=== PATIENT | male | born 1995 | race Caucasian/White ===

== ENCOUNTER 2023-02-14 12:55 | Emergency (ER) | payer OTHER, SELFPAY ==
[2023-02-14 13:25] VITALS: BP 163/84; PULSE 66; RESP 18; TEMP 36.8; O2SAT 96; BMI 41.9
[2023-02-14 13:47] LABS: Appearance Urine Cloudy (Clear); Bilirubin Urine 1+ (Negative); Blood Urine 3+ (Negative); Color Urine Brown (Yellow); Glucose Urine Negative (Negative); Ketones Urine Negative (Negative); Leukocyte Esterase Urine Negative (Negative); Nitrite Urine Negative (Negative); Protein Urine 2+ (Negative); Specific Gravity Urine >= 1.030 (1.000-1.030); Urobilinogen Urine 0.2 (0.2-1.0); pH Urine 5.5 (5.0-8.5)
[2023-02-14 14:17] LABS: Bacteria Urine Few; Mucus Urine Few; RBC Urine >100 (0-2); Squamous Epithelial Cell Urine Few (None-Few)
[2023-02-14] MEDS: ONDANSETRON 2 MG/ML inj 4 MG IVP (15:01)
[2023-02-14] MEDS: 0.9 % SODIUM CHLORIDE 1000 ml 1,000 ML IV (15:01)
[2023-02-14] MEDS: KETOROLAC 15 MG/ML inj IVP (15:01)
--- NOTE | 2023-02-14 15:18 | ED_ITS ---
HPI - General Adult General Date Seen: 02/14/23 Chief complaint: Flank Pain Stated complaint: Kidney Stone Time Seen by Provider: 02/14/23 14:48 Source: patient Mode of arrival: ambulatory Limitations: no limitations History of Present Illness HPI narrative: Patient is a 27-year-old male who presents for evaluation of right-sided flank pain which started 2 hours prior to arrival. He has a history of for 5 kidney stones prior and this feels the same. It is associated with nausea no vomiting. He has not had fevers or chills. He has not noted hematuria. Prior kidney stones of all past without needing intervention. He says he had a CT scan with his original kidney stone but does not believe he has had CT scans since then. General health is otherwise good. Related Data Allergies Allergy/AdvReac Type Severity Reaction Status Date / Time No Known Drug Allergies Allergy Verified 02/14/23 13:28 Review of Systems Status of ROS: Reports: 10 or more systems reviewed and unremarkable except as noted in History and below Exam Narrative: Exam Narrative: Vital signs as noted above. In general, an alert, well-appearing patient. Head: Normocephalic, atraumatic. Eyes: Pupils are equal reactive. Extraocular movements are full. Conjunctivae are normal. ENT: Mucous membranes are moist. Throat is normal. Neck: Supple without lymphadenopathy. Heart: Regular rate and rhythm. No murmur or rub. Lungs: Clear bilaterally. No increased work of breathing, crackles or wheezes. No CVA tenderness. Abdomen: Soft and nontender. No organomegaly. Extremities: Well perfused. No edema. No calf tenderness. Pulses intact. Neurologic: Patient is alert and oriented to person and place. Speech is fluent. Face is symmetric. Moves all extremities equally. Affect: Normal. Skin: Warm and dry. Well perfused. Const: Vital Signs, click to edit/add: Vital Signs - 24 hr 02/14/23 13:25 Temperature 98.3 F Pulse Rate [Pulse Oximeter] 66 Respiratory Rate 18 Blood Pressure [Ri ght Upper Arm] 163/84 H Pulse Oximetry 96 Oxygen Delivery Me thod Room Air Documenting provider has reviewed patient's vital signs: yes Course Course Hospital Course: On arrival, urinalysis was obtained and is notable for 3+ blood, greater than 100 red cells, 2-5 white cells. An IV was established and he was given Toradol as well as Zofran with improvement in his symptoms. He was given a L of normal saline as well. I did look with the ultrasound, he has hydronephrosis on the right. Left is normal. No free fluid. I have reviewed previous records. He had a CT scan back in 2014 at which time he had a 3-4 mm calculus. I do not see other CT scans since then. He did not have significant other stone burden at that time. Given that his symptoms are suggestive of kidney stone, he has hematuria and hydronephrosis, I do not think he needs a CT scan today, though I have discussed with him that at times a stone can be too large to pass without intervention. At this time, I think pain control, hydration and observation is reasonable, if he does not pass the stone in the next several days then I would have him follow-up with Urology and ad ditional imaging may be needed. There is no evidence of infection on the urinalysis today, and he does not show any signs here of infection such as fever or chills or vomiting. If these were to develop he should return for re- evaluation right away. Likewise, if he has severe uncontrolled pain, return to the ER. Patient did require some morphine for pain control, and felt that this was more painful than his previous stones, so he did request that we do a CT scan today just to make sure this was not a larger stone. By my review, the CT shows some hydronephrosis on the right and an approximately 3 mm stone in the right ureter. Awaiting radiology review. Radiology reads the CT as showing a 2 mm stone, little bit of hydro, no other findings. He does have some other stones in the right kidney. Will discharge home with above plan. At this size, would assume this stone will pass without difficulty. Vital Signs Vital signs: Initial Vital Signs Temperature 98.3 F 02/14/23 13:25 Temperature Source Temporal Artery Scan 02/14/23 13:25 Pulse Rate 66 02/14/23 13:25 Pulse Rhythm 02/14/23 13:25 Pulse Strength 3+ Normal 02/14/23 13:25 Respiratory Rate 18 02/14/23 13:25 Blood Pressure 163/84 H 02/14/23 13:25 Blood Pressure Mean 110 02/14/23 13:25 Blood Pressure Position Sitting 02/14/23 13:25 Pulse Oximetry 96 03/18/23 13:25 Oxygen Delivery Method 02/14/23 13:25 Vital Signs Temperature 98.3 F 02/14/23 13:25 Pulse Rate 66 02/14/23 13:25 Respiratory Rate 18 02/14/23 13:25 Blood Pressure 163/84 H 02/14/23 13:25 Pulse Oximetry 96 02/14/23 13:25 Oxygen Delivery Method 02/14/23 13:25 Temperature 98.3 F 02/14/23 13:25 Pulse Rate 66 02/14/23 13:25 Respiratory Rate 18 02/14/23 13:25 Blood Pressure 163/84 H 02/14/23 13:25 Pulse Oximetry 96 02/14/23 13:25 Oxygen Delivery Method 02/14/23 13:25 Medical Decision Making Lab Data Labs: Lab Results 02/14/23 Range/Units 13:35 Urine Color Brown A (Yellow) Urine Appearance Cloudy A (Clear) Urine pH 5.5 (5.0-8.5) Ur Specific [place] >= 1.030 (1.000-1.030) Urine Protein 2+ A (Negative) Urine Glucose (UA) Negative (Negative) Urine Ketones Negative (Negative) Urine Blood 3+ A (Negative) Urine Nitrite Negative (Negative) Urine Bilirubin 1+ A (Negative) Urine Urobilinogen 0.2 (0.2-1.0) Ur Leukocyte Esterase Negative (Negative) Urine RBC >100 A (0-2) Urine WBC 2-5 (0-5) Ur Squamous Epith Cells Few (None-Few) Urine Bacteria Few A (None) Urine Mucus Few A (None) Discharge Plan Discharge Clinical Impression: Kidney stone Patient Disposition: Home, Self-Care Condition: Improved Instructions: Kidney Stones (ED) Additional Instructions: Ibuprofen 400 mg 3 times daily with food. Oxycodone as needed for uncontrolled pain. Zofran as needed for nausea. Push fluids, strain urine. If you have not passed a stone within the next 3-4 days, call to make urology follow-up. [phone] If at any time you develop severe uncontrolled pain, fevers, chills, vomiting or other new symptoms, return to the emergency department for re-evaluation. Stand Alone Forms: [facility] Info Instructions
[2023-02-14] MEDS: MORPHINE 4 MG/ML INJ IVP ×2 (15:59→17:34)
--- NOTE | 2023-02-14 17:13 | CRLHL7_ITS ---
For Patients: As a result of the Century Cures Act, medical imaging exams and procedure reports are released immediately into your electronic medical record. You may view this report before your referring provider. If you have questions, please contact your health care provider. INDICATION: Right flank pain. TECHNIQUE: CT abdomen and pelvis without contrast. COMPARISON: None. FINDINGS: Lower chest: Unremarkable. Liver: Normal in size and attenuation. No suspicious masses. Gallbladder and bile ducts: No stones or inflammation. No biliary dilatation. Pancreas: Unremarkable. No mass or inflammation. Spleen: Normal in size. No masses. Adrenal glands: Normal in size. No nodules. Kidneys: A 2 mm stone in the proximal right ureter is causing minimal hydronephrosis. Few other tiny stones remain in each kidney. GI tract: Unremarkable. Normal in caliber. No sign of mass or inflammation. Normal appendix. Vasculature: Abdominal aorta is normal in caliber. Lymph nodes: No lymphadenopathy. Peritoneum/Abdominal Wall: Unremarkable. No sign of mass or infiltration. No free air or significant free fluid. Pelvis: Unremarkable. No pelvic masses. Bones: Unremarkable for age. IMPRESSION: Small 2 mm stone in the proximal right ureter causing minimal hydronephrosis. Please note that all CT scans at this facility use dose modulation, iterative reconstruction, and/or weight-based dosing when appropriate to reduce radiation dose to as low as reasonably achievable. Dictated by Jean Marie Gonzalez MD @ 02/14/2023 6:10:53 PM (Electronically Signed)
== END 2023-02-14 18:30 | disposition home or self-care (01) ==
PROVIDERS: Emergency Provider Emergency Medicine
DX: N20.0 Calculus of kidney (principal)
CPT/HCPCS: 74176; 81001; 81003; 81015; 87086; 96361; 96374; 96375; 99284; J1885; J2270; J2405; J7030

== ENCOUNTER 2023-02-18 13:33 | Outpatient (CLI) | payer OTHER, SELFPAY ==
[2023-02-21 07:49] LABS: Calculi Mass 2 mg
== END 2023-02-18 13:34 | disposition home or self-care (01) ==
PROVIDERS: PCP Internal Medicine; Visit Provider Internal Medicine
DX: N20.0 Calculus of kidney (principal)
CPT/HCPCS: 82365

== ENCOUNTER 2023-07-14 23:38 | Emergency (ER) | payer OTHER, SELFPAY ==
[2023-07-14 23:42] VITALS: BP 147/55; PULSE 66; RESP 20; TEMP 36.4; O2SAT 97; BMI 44.8
--- NOTE | 2023-07-15 00:02 | CRLHL7_ITS ---
For Patients: As a result of the Century Cures Act, medical imaging exams and procedure reports are released immediately into your electronic medical record. You may view this report before your referring provider. If you have questions, please contact your health care provider. INDICATION: left flank pain, h/o stones CT ABDOMEN AND PELVIS WITHOUT CONTRAST TECHNIQUE: Multidetector CT imaging was performed through the abdomen and pelvis without intravenous contrast administration. Coronal and sagittal reconstructions were generated. COMPARISON: 02/14/2023 CT abdomen and pelvis. FINDINGS: Lower chest: Lung bases are clear. Liver: Diffuse fatty infiltration of the liver. Mild hepatomegaly. Gallbladder and bile ducts: No gallbladder wall thickening or calcified gallstones. No biliary dilation identified. Pancreas: Unremarkable. Spleen: Mild splenomegaly measuring 16 centimeters in AP dimension. Adrenals: No nodules or masses. Kidneys, ureters, and urinary bladder: Obstructing 4 millimeter stone in the proximal left ureter just below the ureteropelvic junction, producing mild left hydronephrosis. Previously seen obstructing stone in the proximal right ureter is no longer visualized at this location, and right hydronephrosis has resolved. A few small nonobstructing right intrarenal stones remain present. No bladder mass or definite wall thickening. Gastrointestinal tract: Normal caliber bowel without wall thickening. The appendix is normal. Vascular structures: Normal for age. Peritoneum: No free air, abscess, or significant free fluid. Lymph nodes: No pathologically enlarged nodes identified. Reproductive organs: No pelvic masses. Bones: Normal for age. IMPRESSION: 1. Obstructing 4 millimeter stone in the proximal left ureter producing mild left hydronephrosis. 2. Small nonobstructing right intrarenal stones. 3. Fatty infiltration of the liver and mild hepatosplenomegaly. ABDIRAHMAN LOVELL MD [employer] Dictated by Raghu Lovell MD @ 07/15/2023 12:57:32 AM Please note that all CT scans at this facility use dose modulation, iterative reconstruction, and/or weight-based dosing when appropriate to reduce radiation dose to as low as reasonably achievable. Dictated by: Raghu Lovell MD @ 07/15/2023 01:01:19 (Electronically Signed)
--- NOTE | 2023-07-15 00:03 | ED_ITS ---
HPI - General Adult General Time Seen by Provider: 00:03 Date Seen: 07/15/23 Chief complaint: Flank Pain Stated complaint: Kidney Stone Time Seen by Provider: 07/15/23 00:06 Source: patient, family, RN notes reviewed and old records reviewed Mode of arrival: ambulatory Limitations: no limitations History of Present Illness HPI narrative: 28y/o male with h/o kidney stones presents with flank pain x1 hour. Nausea and dry heaves. No hematuria or dysuria. No diarrhea. Took Oxycodone at home with no improvement. Related Data Previous Rx's Medication Instructions Recorded ketorolac 10 mg tablet 10 mg PO Q6H 5 days #20 tabs 07/15/23 Allergies Allergy/AdvReac Type Severity Reaction Status Date / Time No Known Drug Allergies Allergy Verified 02/16/23 15:11 PFSH PFSH Social History Smoking Status: Never smoker Non-prescribed substance use: denies use service: No Exam Narrative: Exam Narrative: General: Well-developed and well-nourished, appears uncomfortable Head: Atraumatic and normocephalic Eyes: Pupils are equal reactive, extraocular motions intact, conjunctiva clear ENT: External nose and ears are normal, posterior pharynx without erythema or exudate Neck: No midline cervical tenderness, full spontaneous range of motion the neck, trachea midline, no adenopathy Heart: Regular rate and rhythm no murmurs or thrills Lungs: Clear to auscultation bilaterally without wheezes or crackles Abdomen: Soft, nontender, nondistended with active bowel sounds. Left CVA tenderness Musculoskeletal: No tenderness, deformity, or edema Neurologic: Awake, alert, and oriented x3, no gross focal neurologic deficits, cranial nerves intact as tested Psych: Mood and affect are appropriate Skin: No rashes, diaphoretic Const: Vital Signs, click to edit/add: Vital Signs - 24 hr 07/14/23 23:42 Temperature 97.6 F Pulse Rate [Right Pulse Oximeter] 66 Respiratory Rate 20 Blood Pressure [Ri ght Upper Arm] 147/55 H Pulse Oximetry 97 Oxygen Delivery Me thod Room Air Course Course Hospital Course: Patient seen examined, reviewed prior clinic visits from January 2023 with primary care when patient was sitting for kidney stones. Patient presents today with left flank pain for about an hour, similar to priors kidney stone, with nausea and dry heaves. On exam, appears uncomfortable with left CVA tenderness. Labs and CT scan ordered along with Toradol. Reevaluation(s) Time of Reevaluation #1: 00:32 Reevaluation #1: CT scan abdomen and pelvis independently interpreted by me demonstrates a 3 mm proximal ureteral stone on the left, no other intra-abdominal abnormalities. CBC independently interpreted by me with no leukocytosis or anemia. Labs are otherwise pending. Patient appears more comfortable. Time of Reevaluation #2: 02:10 Reevaluation #2: Basic panel independently interpreted by me is reassuring. Urinalysis independently interpreted by me without evidence for infection. Patient is stable for discharge. Vital Signs Vital signs: Initial Vital Signs Temperature 97.6 F 07/14/23 23:42 Temperature Source Temporal Artery Scan 07/14/23 23:42 Pulse Rate 66 07/14/23 23:42 Pulse Rhythm Regular 07/14/23 23:42 Respiratory Rate 20 07/14/23 23:42 Blood Pressure 147/55 H 07/14/23 23:42 Blood Pressure Mean 85 07/14/23 23:42 Blood Pressure Position Sitting 07/14/23 23:42 Pulse Oximetry 97 07/14/23 23:42 Oxygen Delivery Method Room Air 07/14/23 23:42 Vital Signs Temperature 97.6 F 07/14/23 23:42 Pulse Rate 66 07/14/23 23:42 Respiratory Rate 20 07/14/23 23:42 Blood Pressure 147/55 H 07/14/23 23:42 Pulse Oximetry 97 07/14/23 23:42 Oxygen Delivery Method Room Air 07/14/23 23:42 Temperature 97.6 F 07/14/23 23:42 Pulse Rate 66 07/14/23 23:42 Respiratory Rate 20 07/14/23 23:42 Blood Pressure 147/55 H 07/14/23 23:42 Pulse Oximetry 97 07/14/23 23:42 Oxygen Delivery Method Room Air 07/14/23 23:42 Medical Decision Making Lab Data Labs: Lab Results 07/15/23 07/15/23 Range/Units 00:10 01:55 WBC 8.30 (4.50-11.00) K/uL RBC 4.96 (4.30-5.90) m/uL Hgb 15.4 (13.5-17.5) gm/dL Hct 44.1 (37.0-53.0) % MCV 89 (80-100) fL MCH 31 (26-34) pg MCHC 35 (32-36) gm/dL RDW Coeff of [place] 11.8 (11.5-15.5) % Plt Count 276 (140-440) K/uL Neut % (Auto) 56.8 (42.0-72.0) % Lymph % (Auto) 28.2 (20-44) % [place] % (Auto) 11.1 H (0.0-11.0) % Eos % (Auto) 2.9 (0.0-7.0) % Baso % (Auto) 0.5 (0.0-3.0) % Neut # (Auto) 4.72 (1.7-7.0) K/uL Lymph # (Auto) 2.34 (0.90-2.90) K/uL [place] # (Auto) 0.90 (0.00-0.90) K/UL Eos # (Auto) 0.24 (0.00-0.50) K/uL Baso # (Auto) 0.04 (0.00-0.30) K/uL Abs Immat Gran (auto) 0.04 (0.00-0.30) K/uL Imm/Tot Granulo (auto) 0.5 % Sodium 141 (135-149) mmol/L Potassium 4.0 (3.6-5.1) mmol/L Chloride 104 (96-114) mmol/L Carbon Dioxide 25 (20-32) mmol/L BUN 12 (5-24) mg/dL Creatinine 0.7 (0.5-1.5) mg/dL Estimated Creat Clear 169.37 Estimated GFR 127 ml/min Glucose 143 H (60-115) mg/dL Calcium 10.0 (8.4-10.6) mg/dL Urine Color Yellow (Yellow) Urine Appearance Slightly Cloudy A (Clear) Urine pH 7.0 (5.0-8.5) Ur Specific [place] 1.015 (1.000-1.030) Urine Protein 1+ A (Negative) Urine Glucose (UA) Trace A (Negative) Urine Ketones Negative (Negative) Urine Blood 3+ A (Negative) Urine Nitrite Negative (Negative) Urine Bilirubin Negative (Negative) Urine Urobilinogen 1.0 (0.2-1.0) Ur Leukocyte Esterase Negative (Negative) Urine RBC 10-25 A (0-2) Urine WBC 0-2 (0-5) Ur Squamous Epith Cells Few (None-Few) Urine Bacteria Few A (None) Urine Mucus Moderate A (None) Discharge Plan Discharge Clinical Impression: Left ureteral calculus Patient Disposition: Home, Self-Care Condition: Stable Instructions: Ureteral Stones (ED) Additional Instructions: [facility] [phone] [facility] [phone] Both of these providers accept online appointment requests Take Tylenol 1000mg every 6 hours alternating with Toradol 10mg every 6 hours scheduled Take Oxycodone as needed for pain not controlled with Tylenol and Toradol Activity Level: No Restrictions Prescriptions: New ketorolac 10 mg tablet 10 mg PO Q6H 5 Days Qty: 20 0RF Follow Up/Referrals: Trenton Esposito MD [Primary Care Provider] - Stand Alone Forms: [facility] Info Instructions
[2023-07-15] MEDS: 0.9 % SODIUM CHLORIDE 1000 ml 1,000 ML IV (00:24)
[2023-07-15] MEDS: KETOROLAC 15 MG/ML inj IVP (00:25)
[2023-07-15] MEDS: ONDANSETRON 2 MG/ML inj 4 MG IVP (00:25)
[2023-07-15 00:27] LABS: Basophils Absolute Auto 0.04 K/uL (0.00-0.30); Basophils Percent Auto 0.5 % (0.0-3.0); Eosinophils Absolute Auto 0.24 K/uL (0.00-0.50); Eosinophils Percent Auto 2.9 % (0.0-7.0); Hematocrit 44.1 % (37.0-53.0); Hemoglobin* 15.4 gm/dL (13.5-17.5); Immature Granulocytes Abs Auto 0.04 K/uL (0.00-0.30); Immature Granulocytes Pct Auto 0.5 %; Lymphocytes Absolute Auto 2.34 K/uL (0.90-2.90); Lymphocytes Percent Auto 28.2 % (20-44); Mean Corpuscular HGB Conc 35 gm/dL (32-36); Mean Corpuscular Hemoglobin 31 pg (26-34); Mean Corpuscular Volume 89 fL (80-100); Monocytes Percent Auto 11.1 % (0.0-11.0); Neutrophils Absolute Auto 4.72 K/uL (1.7-7.0); Neutrophils Percent Auto 56.8 % (42.0-72.0); Platelet Count* 276 K/uL (140-440); RDW Coefficient of Variation % 11.8 % (11.5-15.5); Red Blood Count 4.96 m/uL (4.30-5.90)
[2023-07-15 00:30] LABS: Slide Review Reflex No
[2023-07-15 00:38] LABS: Chloride* 104 mmol/L (96-114); Sodium* 141 mmol/L (135-149)
[2023-07-15 00:40] LABS: Creatinine* 0.7 mg/dL (0.5-1.5); Est. Creatinine Clearance* 169.37; Estimated Glomerular Filt Rate 127 ml/min
[2023-07-15 00:41] LABS: Blood Urea Nitrogen* 12 mg/dL (5-24); Carbon Dioxide* 25 mmol/L (20-32); Glucose* 143 mg/dL (60-115)
[2023-07-15] MEDS: HYDROmorphone 0.5 mg/0.5 ml inj IVP (00:48)
[2023-07-15 02:01] LABS: Appearance Urine Slightly Cloudy (Clear); Bilirubin Urine Negative (Negative); Blood Urine 3+ (Negative); Color Urine Yellow (Yellow); Glucose Urine Trace (Negative); Ketones Urine Negative (Negative); Leukocyte Esterase Urine Negative (Negative); Nitrite Urine Negative (Negative); Protein Urine 1+ (Negative); Specific Gravity Urine 1.015 (1.000-1.030)
[2023-07-15 02:08] LABS: Bacteria Urine Few; Mucus Urine Moderate; Squamous Epithelial Cell Urine Few (None-Few); WBC Urine 0-2 (0-5)
[2023-07-15 02:20] VITALS: PULSE 76; RESP 20
== END 2023-07-15 02:27 | disposition home or self-care (01) ==
PROVIDERS: Emergency Provider Family Medicine; PCP Internal Medicine
DX: N20.1 Calculus of ureter (principal)
CPT/HCPCS: 36415; 74176; 80048; 81001; 85025; 87086; 96374; 96375; 99284; J1170; J1885; J2405; J7030

== ENCOUNTER 2023-10-27 12:55 | Outpatient (CLI) | payer OTHER, SELFPAY | END 2023-10-27 12:56 | disposition home or self-care (01) | PROVIDERS: PCP Internal Medicine; Visit Provider Nurse Practitioner Family | DX: E11.9 Type 2 diabetes mellitus without complications (principal); I10 Essential (primary) hypertension; R39.89 Other symptoms and signs involving the genitourinary system; Z13.6 Encounter for screening for cardiovascular disorders; Z13.29 Encounter for screening for other suspected endocrine disorder | CPT/HCPCS: 80053; 80061; 81015; 84443 ==

== ENCOUNTER 2023-11-24 19:32 | Outpatient (CLI) | payer OTHER, SELFPAY ==
--- NOTE | 2023-12-08 08:56 | P.SLS_ITS ---
Sleep Study Details Details Interpreting Provider: Josi Date of Sleep Study: 11/24/23 Sleep Study Details: STUDY TYPE:? Home unattended ? BMI:? 46.1 ORDERING PROVIDER:Aurelia Ryan INDICATION:? Concerns about sleep apnea ? SLEEP SUMMARY:? Monitor time 67 minutes RESPIRATORY SUMMARY:? AHI 124.5 Low oxygen 85 10.4% of study oxygen below 90% Snoring 14.2% PERIODIC LIMB MOVEMENTS OF SLEEP:? Not recorded during home study CARDIAC:? Range 55-104, mean 67.4 IMPRESSION:? This study demonstrates very severe obstructive sleep apnea. The study was monitored by a small amount of time monitored (67 minutes). RECOMMENDATION: Treatment options would include AutoSet CPAP versus an in-lab titration. I would favor an in-lab titration study. Weight loss is also r ecommended
== END 2023-11-24 19:33 | disposition home or self-care (01) ==
LOC: SLEEP 19:32
PROVIDERS: PCP Internal Medicine; Visit Provider Nurse Practitioner Family
DX: G47.33 Obstructive sleep apnea (adult) (pediatric) (principal)
CPT/HCPCS: 95806